=== PATIENT | female | born 1965 | race Caucasian/White ===

== ENCOUNTER 2017-03-27 08:47 | Emergency (ER) | payer OTHER ==
[~2017-03-27 08:47] MED LIST: AMITRYPTYLINE; AUGMENTIN PO; BACTRIM DS TABL1 TA1 PO; BENZONATATE PO; BUSPAR15 M1 PO; CHANTIX1 MG; DICLOFENAC PO; DOXYCYCLINE PO; FLEXERIL PO; IBUPROFEN PO; IBUPROFEN800 MG PO; LEVAQUIN PO; MUCINEX D1 TAB.SR1 PO; NAPROXEN500 M1 PO; NEURONTIN100 MG PO; ROBAXIN 750750 M1 PO; ROBITUSSIN AC PO; RONDEC DM PO; TOPAMAX50 MG PO; VICODIN 5/500 T1 TAB PO; ZITHROMAX PO
== END 2017-03-27 09:14 | disposition home or self-care (01) ==
LOC: SED 08:47
DX: S81.811A Laceration without foreign body, right lower leg, initial encounter (principal); G43.909 Migraine, unspecified, not intractable, without status migrainosus; W45.8XXA Other foreign body or object entering through skin, initial encounter; Y93.H9 Activity, other involving exterior property and land maintenance, building and construction; Y92.007 Garden or yard of unspecified non-institutional (private) residence as the place of occurrence of the external cause
CPT/HCPCS: 12002; 99283

== ENCOUNTER → 2017-06-24 | Outpatient (CLI) | payer OTHER ==
--- NOTE | ~2017-06-24 | CR63 ---
[facility]. [facility] A Service of [facility] & [facility] / [facility] RADIOLOGY TEXT RESULTS PATIENT: KOKI REID LOCATION: [facility] : 67 UNIT #: [id number] AGE: [address]: Chema Alvarez MD SEX: F ORDER DR: [id number] [place] [id number] O MR#: [id number] Acc #: [id number] NAME: KOKI REID : 1965 SEX: F STUDY DATE/TIME: 06/24/2017 9:02 UNIT: [facility] ROOM: STUDY DESCRIPTION: CR Chest 2 View Attending Physician: Chema Alvarez M.D. Referring Physician: Chema Alvarez M.D. Ordering Physician: Chema Alvarez M.D. Primary Care Physician: Chema Alvarez M.D. MEDICAL IMAGING REPORT This report is preliminary unless electronic signature is present. EXAM Chest 06/24/2017, [facility]. HISTORY 51-year-old woman with COPD. COMPARISON Chest 04/14/2014. FINDINGS PA and lateral chest views demonstrate normal cardiac size and configuration. Hilar structures and mediastinal contours are preserved. Lungs are mildly hyperinflated but clear. Costophrenic angles are preserved. IMPRESSION Mild generalized pulmonary hyperinflation. No acute chest finding. Dictated by... Russell Newell M.D. THIS IS AN ELECTRONICALLY VERIFIED REPORT Russell Newell M.D. at 06/24/2017 3:08 PM TURNER/jessica TD: 06/24/2017 14:04 JOB #: [id number] MEDICAL IMAGING REPORT Page 1 of 1
--- NOTE | ~2017-06-24 | MY11 ---
[facility] A Service of [facility] RADIOLOGY TEXT RESULTS PATIENT: KOKI REID LOCATION: [facility] : 67 UNIT #: [id number] AGE: [address]: Chema Alvarez MD SEX: F ORDER DR: [id number] [address] [address] [id number] O MR#: [id number] Acc #: [id number] NAME: KOKI REID : 1965 SEX: F STUDY DATE/TIME: 06/24/2017 9:21 UNIT: [facility] ROOM: STUDY DESCRIPTION: MY Mammogram Screening Dig Matty Attending Physician: Chema Alvarez M.D. Referring Physician: Chema Alvarez M.D. Ordering Physician: Chema Alvarez M.D. Primary Care Physician: Chema Alvarez M.D. MEDICAL IMAGING REPORT This report is preliminary unless electronic signature is present. EXAM Digital screening mammogram, 06/24/2017, [facility]. HISTORY 51-year-old woman; positive family history, niece, premenopausal. Annual screening COMPARISON 05/31/2011, 09/03/2012, 08/10/2013. FINDINGS Digital imaging of each breast was completed, utilizing screening protocol. Review includes FDA-approved CAD device. Breast parenchyma is moderately dense with fibroglandular opacities, stable bilaterally. There is no interval occurring mass. I see no suspicious microcalcifications and no architectural deformity. IMPRESSION Negative mammogram. Annual screening recommended. Patients over the age of 40 are entered into a reminder system with target due date for the next mammogram. A result letter will also be sent to the patient. BIRADS: 1 Negative Dictated by... Russell Newell M.D. THIS IS AN ELECTRONICALLY VERIFIED REPORT [facility] A Service of [facility] RADIOLOGY TEXT RESULTS PATIENT: KOKI REID LOCATION: [facility] : 67 UNIT #: [id number] AGE: [address]: Chema Alvarez MD SEX: F ORDER DR: Russell Newell M.D. at 06/24/2017 3:08 PM Carlie TD: 06/24/2017 13:54 JOB #: [id number] MEDICAL IMAGING REPORT Page 1 of 1
== END | disposition home or self-care (01) ==
LOC: SMAM 08:24
DX: Z12.31 Encounter for screening mammogram for malignant neoplasm of breast (principal); R91.8 Other nonspecific abnormal finding of lung field; F17.200 Nicotine dependence, unspecified, uncomplicated; Z80.3 Family history of malignant neoplasm of breast
CPT/HCPCS: 71020; G0202

== ENCOUNTER 2017-08-06 18:10 | Emergency (ER) | payer OTHER ==
[~2017-08-06] VITALS: Ht 167.6 cm; Wt 60.3 kg
== END 2017-08-06 21:20 | disposition home or self-care (01) ==
LOC: SED 18:10
DX: J06.9 Acute upper respiratory infection, unspecified (principal); G43.909 Migraine, unspecified, not intractable, without status migrainosus; Z90.5 Acquired absence of kidney; F17.200 Nicotine dependence, unspecified, uncomplicated; Z88.8 Allergy status to other drugs, medicaments and biological substances
CPT/HCPCS: 87651; 99284